=== PATIENT | female | born 1955 | race Caucasian/White ===

== ENCOUNTER 2024-06-29 21:01 | Emergency (ER) | payer BC, MEDICARE ==
[2024-06-29] MEDS ORDERED: ATORVASTATIN CA10 MG PO (21:04)
[2024-06-29] MEDS ORDERED: NS 1,000 ML IV ONE (21:15)
[2024-06-29 21:16] LABS: BASO # 0.01 K/mm3 (0.02-0.10); EOS # 0.07 K/mm3 (0.04-0.40); EOS % 0.9 % (1.0-5.0); HEMATOCRIT 39.5 % (37.0-47.0); HEMOGLOBIN 13.2 g/dL (12.5-16.0); LYMPH# 2.96 K/mm3 (1.50-4.00); MEAN CELL VOLUME 95 fl (78-100); MEAN CORPUSCULAR HEMOGLOBIN 32 pg (27-31); MEAN CORPUSCULAR HGB CONC 33 g/dL (33-37); MEAN PLATELET VOLUME 10.4 fl (7.4-10.4); MONO # 0.61 K/mm3 (0.20-0.80); NEU # 4.35 K/mm3 (1.40-6.50); PLATELET COUNT 268 K/mm3 (130-400); RED BLOOD COUNT 4.18 M/mm3 (4.10-5.30); RED CELL DISTRIBUTION WIDTH 12.5 % (11.5-14.5)
[2024-06-29 21:22] LABS: ALBUMIN 4.3 g/dL (3.4-4.8); SODIUM 140 mmol/L (136-145)
[2024-06-29 21:23] LABS: CALCIUM 10.3 mg/dL (8.3-10.5)
[2024-06-29 21:24] LABS: GLUCOSE 140 mg/dL (65-105)
[2024-06-29 21:25] LABS: TOTAL PROTEIN 7.1 g/dL (6.2-8.1)
[2024-06-29 21:26] LABS: CARBON DIOXIDE 22 mmol/L (23-31); TOTAL BILIRUBIN 0.7 mg/dL (0.2-1.2)
[2024-06-29 21:30] LABS: AST-SGOT 150 U/L (5-34)
[2024-06-29 21:31] LABS: ALT/SGPT 91 U/L (0-55)
[2024-06-29 21:38] LABS: TROPONIN-I < 0.030 ng/mL (0.00-0.033)
[2024-06-29 21:58] LABS: PARTIAL THROMBOPLASTIN TIME 24.5 SECONDS (21.0-32.0)
[2024-06-29 22:00] LABS: D-DIMER 0.63 mg/L FEU (0.15-0.50)
[2024-06-29] MEDS ORDERED: Mag/Al Hydrox/Simeth Susp 30 ML CUP PO ONE (22:00)
[2024-06-29 23:17] VITALS: BP 143/92
== END 2024-06-29 23:17 | disposition home or self-care (01) ==
LOC: ED 21:01
PROVIDERS: Family Medicine
DX: R07.9 Chest pain, unspecified (principal); R74.01 Elevation of levels of liver transaminase levels
CPT/HCPCS: J7030